=== PATIENT | female | born 2000 ===

== ENCOUNTER 2020-12-20 21:57 | Emergency (ER) | payer SELFPAY ==
[~2020-12-20] VITALS: Ht 160 cm; Wt 51.9 kg
[2020-12-20 22:00] VITALS: BP 121/85
== END 2020-12-20 23:00 | disposition left against medical advice (07) ==
LOC: M ED 21:57
DX: Z53.21 Procedure and treatment not carried out due to patient leaving prior to being seen by health care provider (principal)